=== PATIENT | female | born 1985 | race Caucasian/White ===

== ENCOUNTER 2019-11-06 05:02 | Inpatient (IN) ==
--- NOTE | 2019-11-05 13:45 | HISTORY AND PHYSICAL ---
HISTORY OF PRESENT ILLNESS: The patient is a 34-year-old, white female, G 4, P 2, A 1, at 39 weeks gestation with a history of prior section x2, who is scheduled for a repeat section. Patient has also expressed a desire for tubal ligation. The patient's care has been unremarkable. She has a history of epilepsy and did have a seizure during this . PAST MEDICAL HISTORY: Significant for epilepsy, as well as a history of substance abuse. PAST SURGICAL HISTORY: section x2, tonsillectomy, cholecystectomy, and hemorrhoid surgery. PAST OB HISTORY: G 4, P 2, A 1, section x2. 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 REVIEW OF SYSTEMS: Significant for occasional migraines. FAMILY HISTORY: Significant for myocardial infarction and breast cancer. SOCIAL HISTORY: Tobacco use: Half a pack per day. Alcohol use: None. MEDICATIONS: Keppra 750 mg b.i.d., Subutex 8 mg daily, vitamins occasionally. ALLERGIES: Imitrex. PHYSICAL EXAMINATION: VITAL SIGNS: Height 5 feet 9 inches, weight 240 pounds, blood pressure 117/84, temperature 96.8 degrees, pulse of 88, respirations 20. heart rate in the 140s. HEENT: Pupils equal, round, and reactive to light and accommodation. Extraocular movements intact. Oropharynx clear. NECK: Supple. No thyromegaly. LUNGS: Clear to auscultation. HEART: Regular rate and rhythm. ABDOMEN: Gravid, nontender. EXTREMITIES: No clubbing, cyanosis, or edema noted. NEUROLOGIC: Cranial nerves 2-12 grossly intact. Motor 5/5. ASSESSMENT AND PLAN: A 34-year-old, white female, 4, para 2, 1, at 39 weeks gestation with a history of prior section x2, for elective repeat section and tubal ligation. Patient counseled about the risks of surgery including bleeding, infection, bowel or bladder injury. Patient counseled about the permanency of tubal ligation, failure rate of 2- 03/1000, as well as the availability of reversible alternatives such as intrauterine device, control pills, patches, etcetera. The patient's surgery is scheduled for 11/06/2019. cc: Alex Burton III, MD
[2019-11-06] MEDS ORDERED: KEFZOL 1 GM/D5W 1 GM/50 ML IVPB IV PRN (05:07)
[2019-11-06] MEDS: LR 1,000 ML IV SCH ×3 (05:40→06:30)
[2019-11-06 05:51] LABS: URINE SOURCE VOIDED
[2019-11-06 05:55] LABS: BASO# 0.02 X1000 (0.0-0.2); BASO% 0.2 % (0.0-0.8); EOS# 0.14 X1000 (0.0-0.7); EOS% 1.1 % (0.0-10.0); HEMATOCRIT 38.6 % (37.0-47.0); HEMOGLOBIN 12.6 g/dL (12.0-16.0); IMM GRAN# 0.03 X1000 (0.0-0.04); IMM GRAN% 0.2 % (0.0-0.5); LYMPH# 2.47 X1000 (1.2-3.4); LYMPH% 18.7 % (20.5-51.1); MCH 31.1 PG (27-31); MCHC 32.6 g/dL (33-37); MCV 95.3 FL (81-99); MONO# 0.75 X1000 (0.11-0.59); MONO% 5.7 % (1.7-9.3); MPV 9.7 FL (7.4-10.4); NEUT# 9.82 X1000 (1.4-6.5); NEUT% 74.1 % (42.2-75.2); PLT 339 X1000 (130-400); RBC 4.05 XMIL (4.2-5.4); RDW 14.1 % (11.5-14.5); WBC 13.23 X1000 (4.8-10.8)
[2019-11-06] MEDS ORDERED: BICITRA PO ONE (06:00)
[2019-11-06] MEDS ORDERED: PEPCID IV ONE (06:00)
[2019-11-06] MEDS ORDERED: REGLAN IV ONE (06:00)
[2019-11-06 06:10] LABS: BILIRUBIN URINE NEGATIVE (NEGATIVE); BLOOD URINE NEGATIVE (NEGATIVE); COLOR YELLOW; GLUCOSE URINE NEGATIVE (NEGATIVE); KETONE URINE NEGATIVE (NEGATIVE); LEUKOCYTES URINE TRACE (NEGATIVE); NITRITE URINE NEGATIVE (NEGATIVE); PH URINE 6.5; PROTEIN URINE NEGATIVE (NEGATIVE); SP GRAVITY URINE 1.012; TURBIDITY URINE HAZY (CLEAR); UROBILINOGEN URINE NORMAL (NORMAL)
[2019-11-06] MEDS ORDERED: FENTANYL ONE (06:28)
[2019-11-06 06:31] LABS: UR AMPHETAMINES QUAL NONE DETECTED (NONE DETECT); UR BARBITUATES QUAL NONE DETECTED (NONE DETECT); UR BENZODIAZEPIN QUAL NONE DETECTED (NONE DETECT); UR CANNABINOIDS QUAL NONE DETECTED (NONE DETECT); UR COCAINE QUAL NONE DETECTED (NONE DETECT); UR METHADONE QUAL NONE DETECTED (NONE DETECT); UR OPIATES QUAL NONE DETECTED (NONE DETECT); UR OXYCODONE QUAL NONE DETECTED (NONE DETECT); UR PCP QUAL NONE DETECTED (NONE DETECT)
[2019-11-06] MEDS ORDERED: DURAMORPH ONE (06:32)
[2019-11-06] MEDS ORDERED: KEFZOL 1 GM/D5W 1 GM/50 ML IVPB ONE (07:04)
[2019-11-06] MEDS ORDERED: VERSED ONE (07:28)
[2019-11-06] MEDS ORDERED: KETAMINE ONE (07:34)
[2019-11-06] MEDS ORDERED: PITOCIN ONE (07:57)
[2019-11-06] MEDS ORDERED: ROBINUL ONE (07:57)
[2019-11-06] MEDS ORDERED: NEO-SYNEPHRINE ONE (07:57)
[2019-11-06] MEDS ORDERED: OFIRMEV 1000 MG/ISOTONIC SOLN 1,000 MG/100 ML BOTTLE ONE (07:57)
[2019-11-06] MEDS ORDERED: SODIUM CHLORIDE 0.9% 10 ML ONE (07:57)
[2019-11-06] MEDS ORDERED: ZOFRAN ONE (07:57)
[2019-11-06] MEDS ORDERED: DECADRON ONE (07:57)
[2019-11-06] MEDS ORDERED: MYLICON PO PRN (08:13)
[2019-11-06] MEDS ORDERED: PITOCIN 20 UNITS/NS 20 UNITS/1,000 ML IV.SOLN IV ONE (08:13)
[2019-11-06] MEDS ORDERED: PHENERGAN IM PRN (08:13)
[2019-11-06] MEDS ORDERED: DULCOLAX PR PRN (08:13)
[2019-11-06] MEDS ORDERED: BOOSTRIX VACCINE IM ONE (08:13)
[2019-11-06] MEDS ORDERED: DEMEROL IM PRN (08:13)
[2019-11-06] MEDS ORDERED: PITOCIN IM PRN (08:13)
[2019-11-06] MEDS ORDERED: ATARAX PO PRN (08:13)
[2019-11-06] MEDS ORDERED: HYDROXYZINE IM PRN (08:13)
[2019-11-06] MEDS ORDERED: DEMEROL PO PRN ×2 (08:13)
[2019-11-06] MEDS ORDERED: M-M-R II VACCINE SUBQ ONE (08:13)
[2019-11-06] MEDS ORDERED: AMBIEN PO PRN (08:13)
[2019-11-06] MEDS ORDERED: OXY IR PO ONE (09:25)
[2019-11-06] MEDS ORDERED: ZOFRAN ODT PO PRN (10:15)
[2019-11-06] MEDS ORDERED: BENADRYL IV PRN (10:15)
[2019-11-06] MEDS ORDERED: ZOFRAN IV PRN ×2 (10:15)
[2019-11-06] MEDS ORDERED: NARCAN INJ PRN (10:15)
[2019-11-06] MEDS ORDERED: NICODERM PATCH TD SCH (10:45)
[2019-11-06] MEDS: MYLICON PO SCH ×4 (11:27→20:52)
[2019-11-06] MEDS: TORADOL IV SCH ×2 (13:51→20:52)
[2019-11-06] MEDS: PITOCIN 10 UNITS/NS 1,000 ML IV SCH (15:59)
[2019-11-06] MEDS: TYLENOL PO SCH (16:56)
--- NOTE | 2019-11-06 20:32 | OPERATIVE NOTE ---
PROCEDURE DATE: 11/06/2019 PREOPERATIVE DIAGNOSES: 1. Intrauterine at 39 weeks with history of section, for repeat section. 2. Patient desires permanent sterilization. POSTOPERATIVE DIAGNOSES: 1. Intrauterine at 39 weeks with history of section, for repeat section. 2. Patient desires permanent sterilization. 3. Operative delivery of a female infant, 5 pounds 3 ounces with Apgars of 9 and 10, at 0716 on 11/06/2019. OPERATION: Repeat low-transverse section. SURGEON: Alex Burton III, MD. DIRECTOR OF SUSTAINABLE DESIGN: MD Troy. ANESTHESIA: Spinal, Dr. Tabares. FINDINGS: Normal-appearing uterus, tubes, and ovaries. COMPLICATIONS: None. ESTIMATED BLOOD LOSS: 500 mL. SPECIMENS REMOVED: Right and left fallopian tube segments. DRAINS: Souza. COUNTS: All counts were correct x3. INDICATIONS: Patient is a 34-year-old, white female, G4, P2, A1, at 39-weeks gestation with a history of prior section x2. The patient also expressed desire for permanent sterilization and signed Medicaid tubal papers. Patient counseled about the risks of surgery including bleeding, infection, bowel or bladder injury. Patient also counseled about the permanency of tubal ligation, failure rate of 2 to 03/1000, as well as the availability of reversible alternatives such as IUD, control pills, patches, etc. PROCEDURE: Patient was taken to the labor and delivery operating room. Spinal anesthesia was then placed and she was placed in supine position with a roll under right hip, and then prepped and draped in sterile fashion with placement of Souza catheter. After she was prepped and draped, adequate anesthesia was noted by using Allis clamps on skin and then a Pfannenstiel skin incision was made using a scalpel. This was taken down sharply to the fascial layer. A small anne was made in the rectus fascia. Fascial incision was then extended bilaterally by curved Cox scissors and pickups. Then, the superior and inferior aspects of the rectus fascia were dissected bluntly and sharply. The peritoneal layer was entered bluntly after dissecting through the midline of the rectus muscle, and then the peritoneal incision was extended superiorly and inferiorly with care taken to avoid the bladder. Bladder reflection was created using Metzenbaum scissors and bladder blade was placed into the abdominal cavity. At this point in time, a transverse incision was made on lower uterine segment using scalpel and penetration into the amniotic cavity was obtained with clear amniotic fluid noted. The hysterotomy incision was extended bilaterally by the surgeon's fingers and then the head was elevated toward the hysterotomy site, and with gentle fundal pressure, the head was delivered atraumatically. Bulb suction of nose and mouth at this point in time, then the rest the body was delivered atraumatically with gentle fundal pressure. The umbilical cord was clamped twice and then cut, handed to nursery nurse in attendance for delivery. The cord blood sample was obtained at this time. Placenta was then manually extracted. Uterus was exteriorized. Wet lap was placed around the uterus. Dry lap was then used to curette the uterine cavity of clots and debris. The uterine incision was closed using 0 chromic in a running locking fashion x1. A small area of oozing was noted on the left side. This was made hemostatic with a [id number] stitch of 0 chromic. Then, attention was then turned to the right fallopian tube which was grasped with a Fisher clamp near the isthmus. A small hole was made in the mesosalpinx using electrocautery and then 0 plain suture was then used to ligate a portion of the fallopian tube. This was then excised using Metzenbaum scissors and electrocautery was used on the open ends of the fallopian tubes. The specimen was handed over to be placed in a specimen container. Attention was then turned to the left fallopian tube which was grasped near the isthmus with a Tomer clamp. The mesosalpinx was penetrated using electrocautery. Then, 0 plain suture was then used to ligate a portion of this fallopian tube, and then this portion was then excised using Metzenbaum scissors. Electrocautery was then applied to the open ends and good hemostasis was noted. This was also handed off to be placed in a specimen container. The posterior cul-de-sac was then irrigated copiously. The uterus was then placed back into the abdominal cavity. Pericolic gutters were cleansed using moist lap sponges, and the bladder reflection and uterine incision were inspected and good hemostasis was noted. The peritoneal layer was then closed using 2-0 chromic in a running fashion x1. The fascial layer was then closed using 0 PDS in a running fashion x1, and subcutaneous layer was then irrigated using saline and then electrocautery was used to obtain hemostasis. The skin was then reapproximated using bruce. All counts were correct x3. The patient was taken to the recovery room in stable condition. Urine output was noted to be clear. cc: Alex Burton III, MD
[2019-11-06] MEDS: PERICOLACE PO SCH (20:52)
[2019-11-06] MEDS: SUBUTEX SL SCH (20:53)
[2019-11-06] MEDS: KEPPRA PO SCH (20:53)
[2019-11-07] MEDS: PITOCIN 10 UNITS/NS 1,000 ML IV SCH (00:08)
[2019-11-07] MEDS: TYLENOL PO SCH ×2 (00:08→07:19)
[2019-11-07] MEDS ORDERED: TORADOL IV SCH (05:00)
[2019-11-07] MEDS: TORADOL IV SCH (05:00)
[2019-11-07 05:56] LABS: BASO# 0.01 X1000 (0.0-0.2); BASO% 0.1 % (0.0-0.8); EOS# 0.02 X1000 (0.0-0.7); EOS% 0.1 % (0.0-10.0); HEMATOCRIT 29.3 % (37.0-47.0); HEMOGLOBIN 9.2 g/dL (12.0-16.0); IMM GRAN# 0.04 X1000 (0.0-0.04); IMM GRAN% 0.2 % (0.0-0.5); LYMPH% 12.9 % (20.5-51.1); MCH 30.4 PG (27-31); MCHC 31.4 g/dL (33-37); MCV 96.7 FL (81-99); MONO# 1.15 X1000 (0.11-0.59); MONO% 6.5 % (1.7-9.3); MPV 9.5 FL (7.4-10.4); NEUT# 14.27 X1000 (1.4-6.5); NEUT% 80.2 % (42.2-75.2); PLT 267 X1000 (130-400); RBC 3.03 XMIL (4.2-5.4); WBC 17.79 X1000 (4.8-10.8)
[2019-11-07] MEDS ORDERED: LR 1,000 ML IV SCH (08:13)
[2019-11-07] MEDS: KEPPRA PO SCH ×2 (09:01→20:51)
[2019-11-07] MEDS: SUBUTEX SL SCH ×2 (09:01→20:51)
[2019-11-07] MEDS: MYLICON PO SCH ×4 (09:03→20:52)
[2019-11-07] MEDS ORDERED: NICODERM PATCH TD PRN (10:00)
--- NOTE | 2019-11-07 11:00 | OB/GYN PROGRESS NOTE ---
- Subjective Patient resting in bed. She is ambulating well, just had her Souza removed. She is tolerating regular food and her pain is controlled. Baby is doing well and bottle feeding. OB Physical Exam Vital Signs - 8 hr 11/07/19 05:02 11/07/19 08:05 Temperature 98.4 F 97.5 F L Pulse Rate 70 92 H Respiratory Rate 18 18 Blood Pressure 117/79 117/77 O2 Sat by Pulse Oximetry 97 92 L - CONSTITUTIONAL General Appearance: no apparent distress - RESPIRATORY Respiratory: lungs clear, normal breath sounds - CARDIOVASCULAR Cardiovascular: regular rate, rhythm - GASTROINTESTINAL (ABDOMEN) Abdominal Exam: normal bowel sounds, non tender, soft, other (Incision: Bandage applied, no shadowing.) Active Medications Generic Name Dose Route Start Last Admin Trade Name Freq PRN Reason Stop Dose Admin Bisacodyl 10 mg 11/06/19 08:13 Dulcolax IN PRN PRN gas unrelieved by Mylicon Buprenorphine HCl 8 mg 11/06/19 21:00 11/07/19 09:01 Subutex SL 8 mg BID ROCAEL Administration Hydroxyzine HCl 50 mg 11/06/19 08:13 Atarax PO Q3-4H PRN PRN Nausea Hydroxyzine HCl 50 mg 11/06/19 08:13 Hydroxyzine IM Q3-4H PRN PRN Nausea Lactated Ringer's 1,000 mls @ 0 mls/hr 11/06/19 05:15 11/06/19 06:30 Lr IV 125 mls/hr .Q0M ROCAEL Administration As Directed Cefazolin Sodium/Dextrose 1 gm in 50 mls @ 100 mls/hr 11/06/19 05:07 11/06/19 06:04 Kefzol 1 Gm/D5w IV 100 mls/hr ONCE PRN PRN Administration section Lactated Ringer's 1,000 mls @ 125 mls/hr 11/07/19 08:13 Lr IV .Q8H ROCAEL Ibuprofen 800 mg 11/06/19 08:13 Motrin PO Q8H PRN PRN Pain Levetiracetam 750 mg 11/06/19 21:00 11/07/19 09:01 Keppra PO 750 mg BID ROCAEL Administration Meperidine HCl 50 mg 11/06/19 08:13 Demerol IM Q3H PRN PRN Pain Meperidine HCl 100 mg 11/06/19 08:13 Demerol PO Q4H PRN PRN Pain (7-10 on Pain Scale) Meperidine HCl 50 mg 11/06/19 08:13 Demerol PO Q4H PRN PRN Pain (1-6 on Pain Scale) Nicotine 21 mg 11/07/19 10:00 11/06/19 16:11 Nicoderm Patch TD 21 mg DAILY PRN PRN Administration smoking cessation Oxycodone/Acetaminophen 1 each 11/06/19 08:13 Percocet-10 PO Q3-4H PRN PRN Pain (7-10 on Pain Scale) Oxycodone/Acetaminophen 1 each 11/06/19 08:13 Percocet-5 PO Q3-4H PRN PRN Pain (1-6 on Pain Scale) Oxytocin 20 unit 11/06/19 08:13 Pitocin IM PRN PRN Severe bleeding Promethazine HCl 25 mg 11/06/19 08:13 Phenergan IM Q3H PRN PRN Pain Senna/Docusate Sodium 1 each 11/06/19 21:00 11/06/19 20:52 Pericolace PO 1 each QHS ROCAEL Administration Simethicone 80 mg 11/06/19 09:00 11/07/19 09:03 Mylicon PO 80 mg PC + HS ROCAEL Administration Simethicone 80 mg 11/06/19 08:13 Mylicon PO PRN PRN GAS Zolpidem Tartrate 10 mg 11/06/19 08:13 Ambien PO HS PRN PRN Sleep Laboratory Results - last 24 hr 11/07/19 05:32 WBC 17.79 H RBC 3.03 L Hgb 9.2 L D Hct 29.3 L D MCV 96.7 MCH 30.4 MCHC 31.4 L RDW Std Deviation 14.0 Plt Count 267 MPV 9.5 Immature Gran % (Auto) 0.2 Neut % (Auto) 80.2 H Lymph % (Auto) 12.9 L Tyrrell % (Auto) 6.5 Eos % (Auto) 0.1 Baso % (Auto) 0.1 Immature Gran # (Auto) 0.04 Neut # (Auto) 14.27 H Lymph # (Auto) 2.30 Tyrrell # (Auto) 1.15 H Eos # (Auto) 0.02 Baso # (Auto) 0.01 OB Assessment & Plan (1) Postop check Status: Acute Plan: Routine /Postop care
[2019-11-07] MEDS: PERCOCET-10 PO PRN (17:36)
[2019-11-07] MEDS: MOTRIN PO PRN (17:36)
[2019-11-07] MEDS: PERICOLACE PO SCH (20:51)
[2019-11-08] MEDS: PERCOCET-10 PO PRN ×3 (00:01→11:03)
[2019-11-08] MEDS: MOTRIN PO PRN ×2 (04:19→14:23)
[2019-11-08] MEDS: KEPPRA PO SCH ×2 (08:46→20:38)
[2019-11-08] MEDS: MYLICON PO SCH ×4 (08:47→20:38)
[2019-11-08] MEDS: SUBUTEX SL SCH ×2 (08:48→20:38)
--- NOTE | 2019-11-08 09:22 | OB/GYN PROGRESS NOTE ---
- Nicole Allen was seen and c/o post-op pain(6-7/10). She has received Subutex. She was offered a heating pad for pain, and she desires to have one. She admits to ambulating around the hospital on yesterday. She has ambulated in her room and to the rest-room today. Her lochia alternates in flow from light to medium. She admits to passing flatus and tolerates a regular diet. She is bottle feeding her daughter. OB Physical Exam Vital Signs - 8 hr 11/08/19 04:12 11/08/19 08:00 Temperature 98.0 F 96.6 F L Pulse Rate 84 81 Respiratory Rate 18 18 Blood Pressure 123/72 146/70 O2 Sat by Pulse Oximetry 98 97 - CONSTITUTIONAL General Appearance: appears well, alert, mild distress - EYES Eyes: PERRL/EOMI - HEAD, EARS, NOSE, MOUTH & THROAT HENMT: normocephalic/atraumatic, moist mucous membranes - NECK Neck: non-tender, full range of motion, supple - RESPIRATORY Respiratory: chest non-tender, lungs clear, normal breath sounds - CARDIOVASCULAR Cardiovascular: normal peripheral pulses, regular rate, rhythm - CHEST (BREASTS) Chest/Breast: deferred - GASTROINTESTINAL (ABDOMEN) Abdominal Exam: normal bowel sounds, soft, other (Tenderness is appropriate. Incision is healing well with bruce in place, no signs of infections (drainage, odor, erythema)) - GENITOURINARY Female Genitalia/Pelvic Exam: deferred - MUSCULOSKELETAL Back Exam: normal inspection Extremity: non-tender, no calf tenderness - SKIN Integumentary: normal color - PSYCHIATRIC Psych/Mental Status: normal thought process (Experiencing post-op pain of which has put her in a somber mood.), other Active Medications Generic Name Dose Route Start Last Admin Trade Name Freq PRN Reason Stop Dose Admin Bisacodyl 10 mg 11/06/19 08:13 Dulcolax MI PRN PRN gas unrelieved by Mylicon Buprenorphine HCl 8 mg 11/06/19 21:00 11/08/19 08:48 Subutex SL 8 mg BID ROCAEL Administration Hydroxyzine HCl 50 mg 11/06/19 08:13 Atarax PO Q3-4H PRN PRN Nausea Hydroxyzine HCl 50 mg 11/06/19 08:13 Hydroxyzine IM Q3-4H PRN PRN Nausea Ibuprofen 800 mg 11/06/19 08:13 11/08/19 04:19 Motrin PO 800 mg Q8H PRN PRN Administration Pain Levetiracetam 750 mg 11/06/19 21:00 11/08/19 08:46 Keppra PO 750 mg BID ROCAEL Administration Meperidine HCl 50 mg 11/06/19 08:13 Demerol IM Q3H PRN PRN Pain Meperidine HCl 100 mg 11/06/19 08:13 Demerol PO Q4H PRN PRN Pain (7-10 on Pain Scale) Meperidine HCl 50 mg 11/06/19 08:13 Demerol PO Q4H PRN PRN Pain (1-6 on Pain Scale) Nicotine 21 mg 11/07/19 10:00 11/06/19 16:11 Nicoderm Patch TD 21 mg DAILY PRN PRN Administration smoking cessation Oxycodone/Acetaminophen 1 each 11/06/19 08:13 11/08/19 04:19 Percocet-10 PO 1 each Q3-4H PRN PRN Administration Pain (7-10 on Pain Scale) Oxycodone/Acetaminophen 1 each 11/06/19 08:13 Percocet-5 PO Q3-4H PRN PRN Pain (1-6 on Pain Scale) Oxytocin 20 unit 11/06/19 08:13 Pitocin IM PRN PRN Severe bleeding Promethazine HCl 25 mg 11/06/19 08:13 Phenergan IM Q3H PRN PRN Pain Senna/Docusate Sodium 1 each 11/06/19 21:00 11/07/19 20:51 Pericolace PO 1 each QHS ROCAEL Administration Simethicone 80 mg 11/06/19 09:00 11/08/19 08:47 Mylicon PO 80 mg PC + HS ROCAEL Administration Simethicone 80 mg 11/06/19 08:13 Mylicon PO PRN PRN GAS Zolpidem Tartrate 10 mg 11/06/19 08:13 Ambien PO HS PRN PRN Sleep OB Assessment & Plan (1) Postop check Status: Acute Plan: See below: (2) Pain Status: Acute Plan: 1. Pain continues to be moderate to severe. Therefore, will con't her admission and use of Subutex PRN. 2. Apply heating pad to lower abdomen to assist with the resolution of her pain intensity. (3) Status post delivery Status: Acute Plan: 1. Continue post-surgical management. 2. Probable discharge to home on tomorrow. (4) Anemia Status: Acute Plan: 1. Fe2+ supplementation (5) Rh(D) positive Status: Chronic Plan: 1. No intervention (6) Rubella immune Status: Chronic Plan: 1. No intervention
[2019-11-08] MEDS: PERCOCET-5 PO PRN ×2 (14:24→20:37)
[2019-11-08] MEDS: FERROUS SULFATE PO SCH (18:03)
[2019-11-08] MEDS: PERICOLACE PO SCH (20:37)
[2019-11-08 21:06] LABS: URINE SOURCE CLEAN CATCH
[2019-11-08 21:09] LABS: BILIRUBIN URINE NEGATIVE (NEGATIVE); BLOOD URINE MODERATE (NEGATIVE); COLOR YELLOW; GLUCOSE URINE NEGATIVE (NEGATIVE); KETONE URINE NEGATIVE (NEGATIVE); LEUKOCYTES URINE NEGATIVE (NEGATIVE); NITRITE URINE NEGATIVE (NEGATIVE); PROTEIN URINE NEGATIVE (NEGATIVE); TURBIDITY URINE CLEAR (CLEAR); UR EPITHELIAL CELLS <10 /HPF (<10); URINE BACTERIA NEGATIVE /HPF; URINE RBC <10 /HPF (<10); URINE WBC <10 /HPF (<10); UROBILINOGEN URINE NORMAL (NORMAL)
[2019-11-09] MEDS: PERCOCET-5 PO PRN ×4 (04:21→20:58)
[2019-11-09] MEDS: MOTRIN PO PRN ×3 (04:21→20:58)
[2019-11-09] MEDS: FERROUS SULFATE PO SCH ×2 (07:51→16:27)
[2019-11-09] MEDS: SUBUTEX SL SCH ×3 (07:51→20:28)
[2019-11-09] MEDS: KEPPRA PO SCH ×3 (07:51→20:28)
[2019-11-09] MEDS: MYLICON PO SCH ×5 (07:51→20:28)
[2019-11-09] MEDS: PERICOLACE PO SCH (20:28)
[2019-11-10] MEDS: PERCOCET-5 PO PRN ×2 (01:13→08:08)
[2019-11-10] MEDS: FERROUS SULFATE PO SCH (08:08)
[2019-11-10] MEDS: MYLICON PO SCH (08:08)
[2019-11-10] MEDS: SUBUTEX SL SCH (08:08)
[2019-11-10] MEDS: KEPPRA PO SCH (08:09)
[2019-11-10] MEDS: MOTRIN PO PRN (08:09)
[2019-11-10 08:20] VITALS: BP 144/86
--- NOTE | 2019-11-11 09:35 | DISCHARGE SUMMARY ---
ADMISSION DATE: 11/06/2019 DISCHARGE DATE: 11/10/2019 ADMISSION DIAGNOSES: 1. Intrauterine 39 weeks with history of section for elective repeat section. 2. Desires permanent sterilization. FINAL DIAGNOSES: 1. Intrauterine 39 weeks with history of section for elective repeat section. 2. Desires permanent sterilization. 3. Repeat low-transverse section. Operative delivery of a female infant, 5 pounds 3 ounces, with Apgars of 9 and 10 at 0716 hours on 11/06/2019. PROCEDURES: Repeat low transverse and bilateral tubal ligation. BRIEF HISTORY: Patient is a 34-year-old white female, G 4, P 2, A 1 at 39 weeks gestation with history of prior section x2, scheduled for repeat . Patient also expressed desire for tubal ligation. care has been unremarkable. She does have a history of epilepsy and did have a seizure during this . Patient also has a history of substance abuse and has been on Suboxone during this . PAST MEDICAL HISTORY: Significant for epilepsy, as well as the substance abuse history. PAST SURGICAL HISTORY: x2, tonsillectomy, cholecystectomy and hemorrhoid surgery. PAST OB HISTORY: G 4, P 2, A 1. x2, spontaneous AB x1. 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 REVIEW OF SYSTEMS: Significant for occasional migraines. FAMILY HISTORY: Significant for myocardial infarction and breast cancer. SOCIAL HISTORY: Tobacco use: Half a pack per day. Alcohol use: None. MEDICATIONS: 1. Keppra 750 mg b.i.d. 2. Subutex 8 mg twice daily 3. vitamins on occasion. ALLERGIES: Imitrex. PHYSICAL EXAMINATION: Vital Signs: Height 5 feet 9 inches, weight 240 pounds, blood pressure 117/84, temperature 96.8 degrees, pulse of 88, respirations 20. heart rate in the 140s. HEENT: Pupils equal, round, reactive to light and accommodation. Extraocular movements intact. Oropharynx clear. Neck: Supple. No thyromegaly. Lungs: Clear to auscultation. Heart: Regular rate and rhythm. Abdomen: Gravid, nontender. Extremities: No clubbing, cyanosis, or edema noted. Neurologic: Cranial nerves 2-12 grossly intact. Motor 5/5. ASSESSMENT AND PLAN: A 34-year-old white female, 4, para 2, abortus 1 at 39 weeks gestation with history of prior section, scheduled for elective repeat section, as well as tubal ligation. Patient counseled about the risks of surgery including bleeding, infection, bowel or bladder injury. The patient also counseled about the permanency of tubal ligation, failure rate of 2 to 4 per 1000, as well as the availability of reversible alternatives such as intrauterine device, control pills, patches, injections, etcetera. The patient's surgery is scheduled for 11/06/2019. The patient had operative delivery of a female , 5 pounds 3 ounces, Apgars of 9 and 10 at 0716 hours on 11/06/2019. Her postoperative care maintained on pain medication, and was advanced on her diet slowly. Became ambulatory on postop day #1. Was eating regular food. On postop day #3 had a bowel movement, still working on pain management plus the female infant was still being monitored in the nursery, so patient was kept until postop day #4, where she was afebrile with stable vital signs and still had good bowel function. Her postop hemoglobin was 9.2 and hematocrit 29.3. Patient was placed on iron sulfate during her hospital care. At this point in time on postop day #4, felt she could be discharged home. The patient will be followed up on 11/13/2019 for staple removal in the office. She is instructed on pelvic rest for 6 weeks, lifting precautions for 6 weeks. She was given instructions to call for temperature greater than 101, heavy vaginal bleeding, severe abdominal pain. She was given instructions on wound care and will have her on the following: DISCHARGE MEDICATIONS: Prescription for: 1. Percocet 10 dispense 20 with no refills. 2. Motrin 800 mg with 1 refill. 3. Colace 100 mg dispense 30 with 1 refill. 4. Iron sulfate 325 mg dispense 30 with 1 refill. cc: Alex Burton III, MD
== END 2019-11-10 09:45 | disposition home or self-care (01) | DRG 784 ==
LOC: LD 05:02
PROVIDERS: ADMIT Obstetrics & Gynecology; ATTEND Obstetrics & Gynecology